=== PATIENT | female | born 1955 | race Caucasian/White ===

== ENCOUNTER → 2016-12-07 | Outpatient (CLI) | payer OTHER | LOC: CT 08:46 → US 13:45 | DX: F99 Mental disorder, not otherwise specified (principal); I65.23 Occlusion and stenosis of bilateral carotid arteries | CPT/HCPCS: 70450; 93880 ==

== ENCOUNTER → 2017-03-04 | Outpatient (CLI) | payer OTHER | LOC: EMI 12:49 | DX: G35 Multiple sclerosis (principal) | CPT/HCPCS: 70551; 72141 ==

== ENCOUNTER → 2020-12-12 | Outpatient (CLI) | payer MEDICARE, OTHER | LOC: KOH-I 16:18 | DX: M54.9 Dorsalgia, unspecified (principal); M47.816 Spondylosis without myelopathy or radiculopathy, lumbar region | CPT/HCPCS: 72100 ==

== ENCOUNTER → 2021-08-25 | Outpatient (CLI) | payer MEDICARE | LOC: EXRD 08:54 | DX: I34.0 Nonrheumatic mitral (valve) insufficiency (principal); I65.22 Occlusion and stenosis of left carotid artery; K76.0 Fatty (change of) liver, not elsewhere classified | CPT/HCPCS: ECHO; 76700; 93306; 93880 ==